=== PATIENT | female | born 1995 | race Caucasian/White ===

== ENCOUNTER → 2020-04-22 10:36 | Outpatient (BNVA) | payer OTHER, SELFPAY | PROVIDERS: Visit Provider Advanced Practice Midwife | DX: Z30.09 Encounter for other general counseling and advice on contraception (principal) | CPT/HCPCS: 81025 ==

== ENCOUNTER 2021-07-10 11:35 | Outpatient (REF) | payer MEDICAID, SELFPAY ==
[2021-07-10 12:31] LABS: COVID-19 Test Negative (Negative)
== END 2021-07-10 11:36 | disposition home or self-care (01) ==
LOC: HO.LAB 11:35
PROVIDERS: Visit Provider Internal Medicine
DX: Z20.822 Contact with and (suspected) exposure to COVID-19 (principal)
CPT/HCPCS: 87635; C9803

== ENCOUNTER 2022-10-30 09:41 | Emergency (ER) | payer MEDICAID, SELFPAY ==
--- NOTE | ~2022-10-30 | US_ITS ---
EXAMINATION: US OBSTETRICAL ULTRASOUND CLINICAL INFORMATION: Pelvic pain. Positive hCG 26,000 567. History of ectopic COMPARISON: None available. LMP: Late August 2022. TECHNIQUE: Transabdominal and transvaginal pelvic imaging performed. FINDINGS: There is a single intrauterine gestational sac with visible yolk sac, embryo/fetus, and cardiac activity. 2.3 x 0.3 x 0.5 cm hypoechoic/anechoic crescentic collection is seen adjacent to the gestational sac. HR: 130 beats per minute. CRL (crown rump length): 0.65 cm (6 weeks 4 days +/- 4 days). ABEL (estimated date of delivery): 06/21/2023 +/- 4 days. MATERNAL ADNEXA: The right maternal ovary measures 3.0 x 1.6 x 1.7 cm. 0.5 x 0.4 x 0.2 cm avascular hyperechoic focus is seen. The left maternal ovary measures 3.4 x 1.8 x 2.1 cm. Dominant follicle is seen. There is no significant maternal adnexal mass. No maternal pelvic ascites. US/US OB pelvic and transvaginal IMPRESSION: 1. Single intrauterine gestation with ultrasound gestational age of 6 weeks 4 days +/- 4 days. Likely 2.3 cm adjacent subchorionic hemorrhage. 2. Estimated date of delivery is 06/21/2023 +/- 4 days. 3. 5 mm right ovarian hyperechogenicity of uncertain etiology and significance. Consider short-term sonographic follow-up.
[2022-10-30 09:44] VITALS: BP 120/75; PULSE 78; RESP 16; TEMP 36.1; O2SAT 100; BMI 32.3
[2022-10-30 10:13] LABS: MANUAL DIFF FLAG NO
[2022-10-30 10:14] LABS: Basophils Percent Auto 0.2 % (0-2); Eosinophils Absolute Auto 0.1 X10*3/uL (0.0-0.4); Eosinophils Percent Auto 0.7 % (0-4); Hematocrit 38.9 % (37.0-47.0); Hemoglobin 13.2 g/dl (12.0-16.0); Imm Gran Abs Auto 0.03 X10*3/uL (0.00-0.03); Imm Gran Pct Auto 0.4 % (0.0-0.4); Lymphocytes Absolute Auto 1.6 X10*3/uL (1.2-4.9); Lymphocytes Percent Auto 19.2 % (20-40); Mean Corpuscular HGB Conc 33.9 g/dl (31.0-35.0); Mean Corpuscular Hemoglobin 28.6 pg (27.0-33.0); Mean Corpuscular Volume 84.4 fL (80.0-98.0); Mean Platelet Volume 10.5 fL (9.4-12.3); Monocytes Absolute Auto 0.7 X10*3/uL (0.1-1.2); Monocytes Percent Auto 8.6 % (2-11); Neutrophils Percent Auto 70.9 % (45-73); Platelet Count 269 X10*3/uL (160-400); Red Blood Count 4.61 X10*6/uL (4.20-5.50); Red Cell Distribution Width 12.7 % (11.0-16.0); White Blood Count 8.4 X10*3/uL (4.8-10.8)
[2022-10-30 10:36] LABS: Anion Gap 13 (12-20); Blood Urea Nitrogen 6 mg/dL (9-16); Calcium 9.5 mg/dL (8.4-10.2); Carbon Dioxide 22 mmol/L (22-29); Chloride 106 mmol/L (96-108); Creatinine Clr Calc Pharmacy 119.1; Estimated Glomerular Filt Rate > 60; Glucose Random 84 mg/dL (60-115); Potassium 3.7 mmol/L (3.3-5.1); Sodium 137 mmol/L (135-145)
[2022-10-30 11:48] VITALS: BP 134/81; PULSE 65; RESP 18; TEMP 37; O2SAT 99
[2022-10-30 12:10] LABS: Appearance Urine Clear; Color Urine Yellow; Glucose Urine UA Negative (Negative); Leukocyte Esterase Urine Small (1+) (Negative); Nitrite Urine Negative (Negative); PH 6.5 (5.0-9.0); Specific Gravity - Urine 1.025 (1.005-1.025); UMIC TRIGGER UACC YES; Urine Blood Negative (Negative); Urine Ketones 40 mg/dL (Negative); Urine Protein Trace mg/dL (Neg-Trace)
[2022-10-30 12:12] LABS: Bacteria Urine 3+ (None Seen); Hyaline Casts Urine 0-2 /LPF (0-2); RBC Urine 0-2 /HPF (0-2); UACC Culture Trigger YES
[2022-10-30 12:32] LABS: UPreg QC Valid YES; Urine Pregnancy POSITIVE (NEGATIVE)
--- NOTE | 2022-10-30 12:33 | ED.PREGNANCY ---
HPI - General Chief complaint: Nausea/Vomiting/Diarrhea Stated complaint: nausea, vomiting Time Seen by Provider: 10/30/22 11:58 Source: patient Mode of arrival: ambulatory Limitations: no limitations History of Present Illness HPI Narrative: 27 yo female with history of ectopic , LMP end of August with positive test at home who presents to the ER for evaluation of lower abdominal cramping and nausea that started 3-4 days ago. She states that the cramping is on both sides. It does feel similar to when she had an ectopic for 5 years ago. She took an at home test that was positive. She is worried she may have another ectopic . She denies any severe excruciating pain. No vaginal bleeding, dizziness, lightheadedness or syncope. No vaginal discharge. MD Complaint: abdominal pain Onset (ago): day(s) Pain Consistency: intermittent Location: abdomen Severity: mild Severity scale (1-10): 3 Quality: Cramping Relieving factors: none Exacerbating factors: none Associated symptoms: nausea Vaginal discharge: none Vaginal bleeding: none Date of Last Menstrual Period: 09/09/22 Patient : Yes OB History - Previous Pregnancies: gestational diabetes Related Data : 4 Para: 1 Previous Rx's Medication Instructions Recorded norelgestromin 150 mcg-e.estradiol 1 patch transdermal Q7D #3 ea 04/22/20 35 mcg/24 hr weekly transderm patch Allergies Allergy/AdvReac Type Severity Reaction Status Date / Time No Known Allergies Allergy Verified 04/22/20 10:50 [No Known Allergies*] Review of Systems Review of Systems: Yes all other systems are reviewed and are negative [facility] Past Medical History Medical History (Updated 10/30/22 @ 13:12 by CARYL Willoughby) History of gallbladder disease Hx of ectopic Surgical History (Updated 04/22/20 @ 11:02 by Jennie Carrero CMA) Hx of cholecystectomy : 4 Para: 1 Date of Last Menstrual Period: 09/09/22 Family History Family History (Updated 04/22/20 @ 11:03 by Jennie Carrero CMA) Father Diabetes HTN (hypertension) Mother HTN (hypertension) Social History Social History (Updated 04/22/20 @ 11:08 by Jennie Carrero CMA) Alcohol intake: never Smoked in Last 30 Days: No Use of substances other than those prescribed or required for medical reasons: No Advance Directives: No Advance Directives Information Provided: Yes Patient : Yes Gender identity: Female Physical Exam Vital Signs: Vital Signs: Last Vital Signs Temp 98.6 F 10/30/22 11:48 Pulse 65 10/30/22 11:48 Resp 18 10/30/22 11:48 BP 134/81 10/30/22 11:48 Pulse Ox 99 10/30/22 11:48 O2 Del Method Room Air 10/30/22 11:48 BMI result Body Mass Index 32.3 Appearance: Alert. Oriented X3. No acute distress. Head: normocephalic, atraumatic. Eyes: Pupils equal, round and reactive to light. ENT: Pharynx normal. No tonsillar swelling or exudate. Neck: Normal inspection. Neck supple. CVS: Normal heart rate and rhythm. Pulses normal. Respiratory: No respiratory distress. Breath sounds normal. Abdomen: Soft and nontender. +BS x4. Pelvic deferred. Skin: Skin warm and dry. Normal skin color. Normal skin turgor. No rashes. Extremities: No lower extremity edema. No joint swelling. Neuro/psych: Oriented X 3. Nonfocal. CN II-XII intact. Normal speech and cognition. Medical Decision Making Medical Decision Making [facility] Narrative: 27 yo female with history of ectopic , LMP end of August with positive test at home who presents to the ER for evaluation of lower abdominal cramping and nausea that started 3-4 days ago. HCG 46,567. O+ blood type. No vaginal bleeding. ABd U/S showing IUP. Stable for d/c home with OB follow up. Differential Diagnosis Differential Diagnoses: The differential diagnosis associated with the presentation includes IUP, ectopic , threatened Lab Data [facility] Lab Attestation statement: I reviewed the patient's lab results. 10/30/22 10:07 10/30/22 10:07 Labs: Lab Results 10/30/22 10/30/22 10/30/22 Range/Units 10:07 10:07 10:07 WBC 8.4 (4.8-10.8) X10*3/uL RBC 4.61 (4.20-5.50) X10*6/uL Hgb 13.2 (12.0-16.0) g/dl Hct 38.9 (37.0-47.0) % MCV 84.4 (80.0-98.0) fL MCH 28.6 (27.0-33.0) pg MCHC 33.9 (31.0-35.0) g/dl RDW 12.7 (11.0-16.0) % Plt Count 269 (160-400) X10*3/uL MPV 10.5 (9.4-12.3) fL Immature Gran % (Auto) 0.4 (0.0-0.4) % Neut % (Auto) 70.9 (45-73) % Lymph % (Auto) 19.2 L (20-40) % [place] % (Auto) 8.6 (2-11) % Eos % (Auto) 0.7 (0-4) % Baso % (Auto) 0.2 (0-2) % Lymph # (Auto) 1.6 (1.2-4.9) X10*3/uL [place] # (Auto) 0.7 (0.1-1.2) X10*3/uL Eos # (Auto) 0.1 (0.0-0.4) X10*3/uL Baso # (Auto) 0.0 (0.0-0.2) X10*3/uL Abs Immat Gran (auto) 0.03 (0.00-0.03) X10*3/uL Absolute Neuts (auto) 6.0 (2.0-8.3) x10*3/uL Absolute Nucleated RBC 0.000 (0.0-0.012) X10*3/uL Nucleated RBC % (auto) 0.0 (0.0-0.2) /100WBC Sodium 137 (135-145) mmol/L Potassium 3.7 (3.3-5.1) mmol/L Chloride 106 (96-108) mmol/L Carbon Dioxide 22 (22-29) mmol/L Anion Gap 13 (12-20) BUN 6 L (9-16) mg/dL Creatinine 0.61 (0.5-1.4) mg/dL Estim Creat Clear Calc 119.1 Estimated GFR > 60 Random Glucose 84 (60-115) mg/dL Calcium 9.5 (8.4-10.2) mg/dL Beta HCG, Quant 93842 mIU/mL Urine Color Urine Appearance Urine pH (5.0-9.0) Ur Specific [place] (1.005-1.025) Urine Protein (Neg-Trace) mg/dL Urine Glucose (UA) (Negative) mg/dL Urine Ketones (Negative) mg/dL Urine Blood (Negative) Urine Nitrite (Negative) Ur Leukocyte Esterase (Negative) Urine RBC (0-2) /HPF Urine WBC (0-5) /HPF Ur Squamous Epith Cells (0-2) /HPF Urine Bacteria (None Seen) Hyaline Casts (0-2) /LPF Urine Test (NEGATIVE) 10/30/22 10/30/22 Range/Units 12:03 12:20 WBC (4.8-10.8) X10*3/uL RBC (4.20-5.50) X10*6/uL Hgb (12.0-16.0) g/dl Hct (37.0-47.0) % MCV (80.0-98.0) fL MCH (27.0-33.0) pg MCHC (31.0-35.0) g/dl RDW (11.0-16.0) % Plt Count (160-400) X10*3/uL MPV (9.4-12.3) fL Immature Gran % (Auto) (0.0-0.4) % Neut % (Auto) (45-73) % Lymph % (Auto) (20-40) % [place] % (Auto) (2-11) % Eos % (Auto) (0-4) % Baso % (Auto) (0-2) % Lymph # (Auto) (1.2-4.9) X10*3/uL [place] # (Auto) (0.1-1.2) X10*3/uL Eos # (Auto) (0.0-0.4) X10*3/uL Baso # (Auto) (0.0-0.2) X10*3/uL Abs Immat Gran (auto) (0.00-0.03) X10*3/uL Absolute Neuts (auto) (2.0-8.3) x10*3/uL Absolute Nucleated RBC (0.0-0.012) X10*3/uL Nucleated RBC % (auto) (0.0-0.2) /100WBC Sodium (135-145) mmol/L Potassium (3.3-5.1) mmol/L Chloride (96-108) mmol/L Carbon Dioxide (22-29) mmol/L Anion Gap (12-20) BUN (9-16) mg/dL Creatinine (0.5-1.4) mg/dL Estim Creat Clear Calc Estimated GFR Random Glucose (60-115) mg/dL Calcium (8.4-10.2) mg/dL Beta HCG, Quant mIU/mL Urine Color Yellow Urine Appearance Clear Urine pH 6.5 (5.0-9.0) Ur Specific [place] 1.025 (1.005-1.025) Urine Protein Trace (Neg-Trace) mg/dL Urine Glucose (UA) Negative (Negative) mg/dL Urine Ketones 40 (Negative) mg/dL Urine Blood Negative (Negative) Urine Nitrite Negative (Negative) Ur Leukocyte Esterase Small (1+) H (Negative) Urine RBC 0-2 (0-2) /HPF Urine WBC 11-20 H (0-5) /HPF Ur Squamous Epith Cells 6-10 (0-2) /HPF Urine Bacteria 3+ (None Seen) Hyaline Casts 0-2 (0-2) /LPF Urine Test POSITIVE H (NEGATIVE) Independent Interpretation I performed an independent interpretation of an: Ultrasound Interpretation: IUP Radiology Impression Discussion of test interpretation with radiology: I have reviewed the radiologist's reading. Radiologist Impression: US/US OB pelvic and transvaginal IMPRESSION: 1. Single intrauterine gestation with ultrasound gestational age of? 6 weeks 4 days +/- 4 days. Likely 2.3 cm adjacent subchorionic hemorrhage. 2. Estimated date of delivery is 06/21/2023 +/- 4 days. 3. 5 mm right ovarian hyperechogenicity of uncertain etiology and significance. Consider short-term sonographic follow-up. External Record Review External record reviewed: Office record, Outpatient record and Prior outpatient labs Prescription Management I considered prescription management with: Other (antiemetic, pre-georgina vitamin) Chronic Conditions Patient?s care impacted by: Other (hx ectopic) Critical Care Time Critical Care Time Critical Care Time: No Discharge Plan Discharge Clinical Impression: Patient Disposition: Home, Self-Care Instructions: at 7 to 10 Weeks (ED) Additional Instructions: Your lab workup was normal. Your ultrasound showed single intrauterine Recommend starting pre-georgina vitamins Recommend taking 1/2 tab Unisom and Vitamin B6 every night to help prevent nausea the following day Follow up with [facility] If you develop new or worsening symptoms call 911 or come back to the ER for further evaluation. Prescriptions: No Action norelgestromin-ethin.estradiol 150-35 mcg/24 hr patch weekly 1 patch transdermal Q7D Qty: 3 6RF Rx Instructions: apply once weekly for 3 weeks of a 4-week cycle Referrals: Reuben Blancas MD [Physician] - () Interventions: ED Discharge Assessment Last Done: 10/30/22 13:28 Discharge Date/Time: 10/30/22 13:28
== END 2022-10-30 13:28 | disposition home or self-care (01) ==
PROVIDERS: Emergency Provider Emergency Medicine; PCP Family Medicine
DX: O26.91 Pregnancy related conditions, unspecified, first trimester (principal); R11.2 Nausea with vomiting, unspecified; R10.2 Pelvic and perineal pain; Z3A.01 Less than 8 weeks gestation of pregnancy; Z79.899 Other long term (current) drug therapy
CPT/HCPCS: 36415; 76801; 76817; 80048; 81001; 81025; 84702; 85025; 87086; 99284